=== PATIENT | female | born 1960 | race Caucasian/White ===

== ENCOUNTER → 2022-10-16 | Outpatient (CLI) | payer OTHER ==
[2022-10-16 11:38] LABS: BASOPHILS % (AUTO) 0.6 % (0.0-5.0); HEMATOCRIT 41.2 % (36-48); LYMPHOCYTES % (AUTO) 32.5 % (21.0-51.0); MEAN CORPUSCULAR HEMOGLOBIN 31.5 pg (27.0-33.0); MEAN CORPUSCULAR HGB CONC 32.5 g/dL (32.0-36.0); MEAN CORPUSCULAR VOLUME 96.9 fL (79-99); NEUTROPHILS % (AUTO) 56.6 % (40.0-77.0); PLATELET COUNT (AUTO) 199 K/uL (130-400); RED BLOOD CELL COUNT(AUTO) 4.25 MIL/uL (4.00-5.50); RED CELL DISTRIBUTION WIDTH 13.2 % (11.0-15.5); WHITE BLOOD COUNT (AUTO) 6.6 K/uL (4.8-10.8)
== END | disposition home or self-care (01) ==
LOC: LAB 11:04
PROVIDERS: ATTEND Internal Medicine Cardiovascular Disease
DX: I27.20 Pulmonary hypertension, unspecified (principal)
CPT/HCPCS: 36415; 85025

== ENCOUNTER → 2022-10-18 | Outpatient (CLI) | payer OTHER ==
[~2022-10-18] MED LIST: IOHEXOL-350 50ML VIAL IV ONE
== END | disposition home or self-care (01) ==
LOC: RAH 12:34
PROVIDERS: ATTEND Internal Medicine Cardiovascular Disease
DX: I27.20 Pulmonary hypertension, unspecified (principal); M47.815 Spondylosis without myelopathy or radiculopathy, thoracolumbar region
CPT/HCPCS: 71270; Q9967

== ENCOUNTER → 2022-11-27 | Outpatient (CLI) | payer OTHER ==
[~2022-11-27] MED LIST changes: +ALBUTEROL 0.083% 2.5 MG/3 ML INH IH ONE; -IOHEXOL-350 50ML VIAL IV ONE
== END | disposition home or self-care (01) ==
LOC: EDUNIT# 11-06 10:30 → RESP 09:12
PROVIDERS: ATTEND Internal Medicine Cardiovascular Disease
DX: I27.20 Pulmonary hypertension, unspecified (principal)
CPT/HCPCS: 94060; 94727; 94729

== ENCOUNTER 2024-11-14 01:15 | Observation (INO) | payer MEDICARE ==
[~2024-11-14] VITALS: Ht 167.6 cm; Wt 76.4 kg
[~2024-11-14 01:15] MED LIST changes: -ALBUTEROL 0.083% 2.5 MG/3 ML INH IH ONE; +APIX5TAB PO; +CARB100T12 PO; +GABA-529 PO; +TOPI-97 PO
--- NOTE | 2024-11-14 01:16 | NUR ---
DELAY IN TRIAGE. PT LEFT TO USE RESTROOM ," I CAN'T HOLD IT"
--- NOTE | 2024-11-14 01:27 | ERN ---
ED Note History of Present Illness Stated Complaint: " A-FIBBING" Chief Complaint: Palpitations Time Seen by MD: 01:22 Dictation: This is a 64-year-old female with paroxysmal atrial flutter fibrillation came in as she started experiencing severe palpitations and at home her heart rates went all the way up to 142-148. She has a cardio mobile device and her recording of the cardiac rhythm shows intermittent SVT and AFib. But many times the patient's heart rates are in the 40s and 50s. She has been started on Eliquis recently for AFib No chest pain diaphoresis. No syncopal episode. She had atrial fibrillation ablation 2 weeks ago. She denied drinking any excessive coffee or caffeinated drinks. He did consume some alcohol when she was in [place] recently. Patient admits to nonrest orative sleep both sleep onset insomnia and maintenance insomnia. She also gives a history of snoring at night Patient appears extremely anxious and tearful however the EKG shows a normal sinus rhythm. Cardio mobile definitely has picked up AFib with RVR with rates of 140s Temperature 97.8 pulse 76 respirations 20 blood pressure 158/96 with a pulse oximetry of 99% on room air Chronic medical issues include mild to moderate mitral regurgitation, atrial flutter/fibrillation on Eliquis. Asset Protection Professional--Dr. Muir and Dr. Butt PCP Dr. Stacy Allergies: Coded Allergies: No Known Allergies (Unverified Allergy, Unknown, 10/25/24) Home Meds Active Scripts Apixaban (Eliquis) 5 Mg Tablet, 1 TAB PO BID for 30 Days, #60 TAB 3 Refills Prov:SUN BUTT MD 10/26/24 Reported Medications Carbamazepine (Carbamazepine) 100 Mg Tab.chew, 100 MG PO QID 10/25/24 Gabapentin (Gabapentin) 100 Mg Capsule, 100 MG PO TID 10/25/24 Topiramate (Topiramate) 50 Mg Tablet, 50 MG PO BID 10/25/24 Past Medical History Past Medical History: A-Fib Additional Past Medical Hx: tortuous aorta, mitral valve regurgitation. Surgical History: Appendectomy, Hysterectomy, Other Surgical History Other: LEFT KNEE, Family History: Negative Social History: ETOH (Social) History: Not Applicable RN Note Reviewed/Agreed w/PFSH: Yes Review of System Dictation Constitutional: Negative for fever,chills, and weight loss Eyes: Negative for injury, pain,redness, and discharge ENT: Negative for injury,pain or swelling Cardiovascular: Negative for chest pain, positive for palpitations Respiratory: Negative for shortness of breath, cough, and wheezing, Abdomen/GI: Negative for abdominal pain, nausea, vomiting, diarrhea, and constipation Back: Negative for injury and pain : Negative for injury, bleeding and discharge MS/Extremity: Negative for injury and deformity Skin: Negative for rash, and discoloration Neuro: Negative for headache, weakness, numbness, tingling, and seizure Psych: Negative for suicide ideation, homicidal ideation, and hallucinations Initial Vital Sign VS Vital Signs Date Time Temp Pulse Resp B/P (MAP) Pulse Ox O2 Delivery O2 Flow Rate FiO2 11/14/24 01:16 97.9 76 20 158/96 99 Room Air 11/14/24 01:42 0 21 Physical Exam Dictation General: awake, alert, NAD tearful and emotional Head/Face: Normocephalic, atraumatic Eyes: PERRL, EOMI, vision at baseline ENT: oral cavity clear, TMs clear, no signs of infection Neck: Trachea midline, supple, no nuchal rigidity Cardiovascular: RRR, normal S1/S2, No MRGs, no JVD Respiratory: CTAB, no respiratory distress, No rales or wheezes Abdomen: Soft, non-tender, non-distended, normal bowel sounds, no guarding or rebound. Skin: Warm, dry, normal turgor, no rash MS/Extremity: Pulses equal, no cyanosis, neurovascular intact, FROM Neuro: COAx4, GCS 15, strength 5/5, CN 2-12 intact, normal cerebellar exam, norm al gait, Psych: Normal behavior, mood, and affect normal Extremities-trace edema without any palpable cords, Homans sign is negative Results (Laboratory/Radiology) Laboratory/Radiology Laboratory Tests Test 11/14/24 01:36 11/14/24 01:38 White Blood Count 7.7 K/uL (4.8-10.8) Red Blood Count 3.97 MIL/uL (4.00-5.50) L Hemoglobin 12.8 g/dL (12.0-16.0) Hematocrit 39.4 % (36-48) Mean Corpuscular Volume 99.2 fL (79-99) H Mean Corpuscular Hemoglobin 32.2 pg (27.0-33.0) Mean Corpuscular Hemoglobin Concent 32.5 g/dL (32.0-36.0) Red Cell Distribution Width 13.4 % (11.0-15.5) Platelet Count 205 K/uL (130-400) Mean Platelet Volume 10.5 fL (7.5-10.5) Immature Granulocyte % (Auto) 0.3 % (0-1) Neutrophils (%) (Auto) 57.8 % (40.0-77.0) Lymphocytes (%) (Auto) 30.9 % (21.0-51.0) Monocytes (%) (Auto) 7.5 % (3.0-13.0) Eosinophils (%) (Auto) 2.6 % (0.0-8.0) Basophils (%) (Auto) 0.9 % (0.0-5.0) Neutrophils # (Auto) 4.5 K/uL (1.8-7.7) Lymphocytes # (Auto) 2.4 K/uL (1.0-4.8) Monocytes # (Auto) 0.6 K/uL (0.1-1.0) Eosinophils # (Auto) 0.20 K/uL (0.00-0.70) Basophils # (Auto) 0.07 K/uL (0.00-0.20) Absolute Immature Granulocyte (auto 0.02 K/uL (0-1) Nucleated Red Blood Cells 0.0 % (0.0-0.19) Sodium Level 137 mmol/L (136-145) Potassium Level 3.6 mmol/L (3.5-5.1) Chloride Level 104 mmol/L (101-111) Carbon Dioxide Level 27 mmol/L (21-32) Blood Urea Nitrogen 26 mg/dL (7-18) H Creatinine 0.8 mg/dL (0.5-1.0) Glomerular Filtration Rate Calc 82 mL/min (>90) Random Glucose 101 mg/dL (70-105) Total Calcium 8.6 mg/dL (8.5-10.1) Total Creatine Kinase 118 U/L (21-232) Troponin I High Sensitivity 15 ng/L (4-50) B-Type Natriuretic Peptide 66 pg/mL (0-100) Urine Color Light-Yellow (YELLOW) Urine Appearance CLEAR (CLEAR) Urine pH 6.5 (5.0-8.0) Urine Specific [place] 1.008 (1.001-1.031) Urine Protein NEGATIVE mg/dL (NEGATIVE) Urine Glucose (UA) NEGATIVE mg/dL (NEGATIVE) Urine Ketones NEGATIVE mg/dL (NEGATIVE) Urine Occult Blood NEGATIVE (NEGATIVE) Urine Nitrate NEGATIVE (NEGATIVE) Urine Bilirubin NEGATIVE mg/dL (NEGATIVE) Urine Urobilinogen 0.2 mg/dL (0.2-1.0) Urine Leukocyte Esterase NEGATIVE Larry/uL Labs Reviewed?: Yes ED Course ED Course Orders Procedure Category Date Status Time Vital Signs Per CPOE 11/14/24 Transmitted Routine 01:19 B-Type Natriuretic LAB 11/14/24 Complete Peptide 01:19 Chest 1vw RAD 11/14/24 Resulted 01:19 12 Lead Ekg Tracing- EKG 11/14/24 Logged Technical 01:19 Oxygen By Nc/Pulse Ox CPOE 11/14/24 Transmitted 01:19 Maintain Iv CPOE 11/14/24 Transmitted 01:19 Iv Insertion CPOE 11/14/24 Transmitted 01:19 Cardiac Monitoring CPOE 11/14/24 Transmitted 01:19 Pulse Oximetry With CPOE 11/14/24 Transmitted Vs And Prn 01:19 Cbc With Differential LAB 11/14/24 Complete 01:19 Activity: Br W/Brp CPOE 11/14/24 Transmitted With Assist 01:19 Creatine Kinase, Total LAB 11/14/24 Complete 01:19 Troponin I High LAB 11/14/24 Complete Sensitivity 01:19 Urinalysis Profile LAB 11/14/24 Complete 01:19 Basic Metabolic Panel LAB 11/14/24 Complete 01:19 Vital Signs Date Time Temp Pulse Resp B/P (MAP) Pulse Ox O2 Delivery O2 Flow Rate FiO2 11/14/24 02:31 65 16 142/80 97 Room Air* 0 21 11/14/24 01:42 97.9 80 20 154/83 96 Room Air* 0 21 11/14/24 01:16 97.9 76 20 158/96 99 Room Air We will perform diagnostic labs, advanced imaging and administer medications according to the patient's complaint. Once the results are available, will review and personally interpreted the labs to rule out any acute life-thre atening emergency the trach require immediate intervention and treatment. I will then re-evaluate the patient after treatment and diagnostic exams have return to determine whether the patient requires any further testing, can safely be discharged home or need further admission to hospital for additional treatment and evaluation. Labs reviewed CBC showed a hemoglobin of 12.8 BNP 7 is significant for a BUN and creatinine of 26 and 0.8 total CK 118 chest x-ray is unremarkable for any acute infiltrate. I had a long discussion with the patient and spouse about all the labs and recommended that she should be monitored for recurrent AFib and have Dr. Muir/Jacki decide on addressing the tachybrady syndrome. She is agreeable 2:48 a.m. patient has been accepted by [facility] mid-level provider for [facility] for management of atrial fibrillation with rapid ventricular response which is paroxysmal Medical Decision Making MDM MDM: Differential diagnosis: Paroxysmal atrial fibrillation-likely from multiple foci in the atria, untreated sleep disorder, mild dehydration, hyperthyroidism Rationale: Tests considered and ordered secondary to shared decision making include: labs, ECG and radiology Previous outside records reviewed: Old ER visits. Risk of complication and/or morbidity or mortality of patient management: None Medications-Per medication reconciliation Need for hospitalization: Patient does meet criteria for hospitalization. Need for emergency major/minor surgery: No There are no social concerns with this patient. Prescription drug management Prescriptions will include symptomatic care Patient's prior external medical records from other ER visits were reviewed by me as indicated. Prior testing and results from previous visits were reviewed. Prior tests were taken into account with medical decision making and resource utilization, independent historian/historians were used to obtain complete medical history. I independently interpreted the test that were performed, results were reviewed by me and considered findings on radiology if ordered. Medical management and examination interpretation discussions were had by me with other qualified healthcare professionals as indicated for the patient's care. Problem List Problem List: (1) Atrial flutter with rapid ventricular response (2) Moderate mitral regurgitation (3) Chronic anticoagulation DX & DISP Disposition: Inpatient Decision to Admit Time: 02:33 Departure Impression: Primary Impression: Moderate mitral regurgitation Additional Impression: Chronic anticoagulation Condition: Stable Additional Instructions: Patient was informed of all the diagnostic labs and procedures conducted in the emergency room today and demonstrated understanding of the results. I personally reviewed and interpreted all the diagnostic exams performed in the ER today. The patient will be admitted to the hospital for further treatment and evaluation. Disposition-admit to facility Condition-stable/guarded Course-uncertain at this time Pain status-decreased Assessment-exam unchanged Admission Certification- I certify that the patients status is appropriate and is based on my best clinical judgment and the patient's condition as documented in the medical records Referrals: OSWALDO STACY MD (PCP) MONIQUE SO MD Nov 14, 2024 01:27
[2024-11-14 01:46] LABS: BASOPHILS # (AUTO) 0.07 K/uL (0.00-0.20); BASOPHILS % (AUTO) 0.9 % (0.0-5.0); EOSINOPHILS % (AUTO) 2.6 % (0.0-8.0); HEMATOCRIT 39.4 % (36-48); IMMATURE GRANULOCYTE ABSOLUTE 0.02 K/uL (0-1); LYMPHOCYTES # (AUTO) 2.4 K/uL (1.0-4.8); LYMPHOCYTES % (AUTO) 30.9 % (21.0-51.0); MEAN CORPUSCULAR HEMOGLOBIN 32.2 pg (27.0-33.0); MEAN CORPUSCULAR HGB CONC 32.5 g/dL (32.0-36.0); MEAN CORPUSCULAR VOLUME 99.2 fL (79-99); MONOCYTES # (AUTO) 0.6 K/uL (0.1-1.0); MONOCYTES % (AUTO) 7.5 % (3.0-13.0); NEUTROPHILS # (AUTO) 4.5 K/uL (1.8-7.7); NEUTROPHILS % (AUTO) 57.8 % (40.0-77.0); PLATELET COUNT (AUTO) 205 K/uL (130-400); RED BLOOD CELL COUNT(AUTO) 3.97 MIL/uL (4.00-5.50); RED CELL DISTRIBUTION WIDTH 13.4 % (11.0-15.5); WHITE BLOOD COUNT (AUTO) 7.7 K/uL (4.8-10.8)
[2024-11-14 01:56] LABS: CREATININE 0.8 mg/dL (0.5-1.0); POTASSIUM 3.6 mmol/L (3.5-5.1)
--- NOTE | 2024-11-14 02:00 | HMCIMG ---
CHEST 1VW HISTORY: Chest pain COMPARISON: 10/25/2024 FINDINGS: A frontal projection of the chest was obtained. No acute pulmonary infiltrates is seen. The heart is borderline enlarged. Degenerative changes are seen. Prominent interstitial markings are seen. No evidence of aortic calcification is seen. IMPRESSION: 1. No acute pulmonary infiltrate is seen.
[2024-11-14 02:04] LABS: APPEARANCE,URINE CLEAR (CLEAR); BILIRUBIN,URINE NEGATIVE (NEGATIVE); GLUCOSE, URINE (UA) NEGATIVE (NEGATIVE); KETONES,URINE NEGATIVE (NEGATIVE); LEUKOCYTE ESTERASE ,URINE NEGATIVE Leu/uL (NEGATIVE); NITRATE,URINE NEGATIVE (NEGATIVE); OCCULT BLOOD,URINE NEGATIVE (NEGATIVE); PH,URINE 6.5 (5.0-8.0); PROTEIN,URINE NEGATIVE (NEGATIVE); UROBILINOGEN,URINE 0.2 mg/dL (0.2-1.0)
[2024-11-14 02:08] LABS: ADD UA MICROSCOPIC NO; COLOR,URINE Light-Yellow (YELLOW)
[2024-11-14 02:28] LABS: B-TYPE NATRIURETIC PEPTIDE 66 pg/mL (0-100)
--- NOTE | 2024-11-14 04:22 | HP ---
[facility] HISTORY AND PHYSICAL Date of Service: Nov 14, 2024 Time of Service: 04:00 PCP: Anthony Omer HISTORY OF PRESENT ILLNESS: This is a 64-year-old female with history of neuropathy ,trigeminal neuralgia, mitral valve regurgitation, tortuous aorta, atrial fibrillation with recent cardiac ablation two weeks ago by who presents to the ED for complaints of severe palpitation at home HR 142 -148 bpm.Patient states she has a cardiac mobile device and recording showed intermittent SVT and atrial fibrillation and patient reports her usual HR is in the 40-50-s.Patient reports 2 weeks ago she was here for similar problem and underwent cardiac ablation and patient was started on Eliquis and patient was advised by her perinatal specialist to get a cardio mobile device and if having afib to go to ER. Patient states she has not been able to get a good sleep because she also has peripheral neuropathy mostly on her left lower extremity.Patient admits to occasionally drinks 2 beers /week and denies drinking excessive coffee or caffeinated drinks.Patient also report having snoring issue at night.Upon ER arrival patient is in normal sinus rhythm. Seen and examined patient in the ER awake,alert and coherent,patient appeared so worried and wanting to be able to see her perinatal specialist.Patient denies fever,cough,chest pain and shortness of breath. Latest vital signs temperature 97.9, heart rate 65, blood pressure 142 / 80 and saturation 97% on room air. Labs: CBC unremarkable. BUN 26 troponin 15 BNP 66 the the rest of the chemis tries unremarkable. Urinalysis is negative. Chest x-ray result revealed no acute pulmonary infiltrate is seen. We will admit patient for further medical management. REVIEW OF SYSTEMS CONSTITUTIONAL: Denies fevers, chills, or night sweats. No unintentional weight loss reported. NEUROLOGICAL: Denies headache, amaurosis fugax, motor weakness, sensory deficit, vertigo/spinning sensation, gait abnormalities, or tremors. ENT: No hearing loss, otalgia, otorrhea, rhinitis, rhinorrhea, hoarseness, or sore throat. CARDIOVASCULAR: Palpitation Denies any exertional angina, dyspnea on exertion, orthopnea, paroxysmal nocturnal dyspnea, life-threatening arrhythmias, claudication. PULMONARY: Denies any shortness of breath, cough, phlegm/sputum, hemoptysis, pleuritic chest pain. SLEEP: Denies morning headaches, daytime somnolence or napping. Denies d ifficulty falling asleep, staying asleep, waking from sleep. Denies knowledge of snoring. GASTROINTESTINAL: Denies any type of dysphagia to either liquids or solids. Denies nausea, vomiting, pyrosis, early satiety, abdominal pain, diarrhea, constipation, or changes in stool consistency or caliber. Denies coffee-ground emesis, hematemesis, hematochezia, or melanotic stools. GENITOURINARY: Denies frequency, urgency, nocturia, hematuria or incontinence (Storage/Irritative symptoms.) Low urinary stream, straining to void, urinary intermittency or hesitancy, splitting of the voiding stream, terminal dribbling. ENDOCRINOLOGIC: Denies polyuria, polydipsia, polyphagia or heat/cold intolerances. HEMATOLOGIC: Denies thrombophilia/previous clots, or coagulopathy/bleeding disorders. ONCOLOGIC: Denies personal history of malignancy. DERMATOLOGIC: Denies rashes or pruritus. PSYCHIATRIC: Denies any suicidal or homicidal ideation. Denies hallucinations. PAST MEDICAL HISTORY: [ neuropathy ,trigeminal neuralgia, mitral valve regurgitation, tortuous aorta, atrial fibrillation on Eliquis] PAST SURGICAL HISTORY: [ Left knee surgery two years ago, hysterectomy the age of 37 years, appendectomy at the age of 11 tonsillectomy at the age of [age] and left wrist fracture with surgery [id number] ] PAST SOCIAL HISTORY: [ Patient lives with . Patient admits to occasional alcohol drinking de nies recreational drug and cigarette smoking ] FAMILY HISTORY: [ Cancer and Alzheimer's disease ] Coded Allergies: No Known Allergies (Unverified Allergy, Unknown, 10/25/24) PHYSICAL EXAM GENERAL APPEARANCE: The patient is awake, alert, and oriented, in no acute cardiopulmonary distress. NEUROLOGICAL: Cranial nerves II-XII grossly intact. Motor is 5/5 in bilateral upper and lower extremities proximal to distal. No sensory deficits. HEENT: Face is symmetric. Pupils are equal and reactive. Extraocular movements are intact. NECK: Supple. No JVD. No thyromegaly. No submental, submandibular, pre- /postauricular, occipital or supraclavicular lymphadenopathy. CHEST: Normal chest expansion. No Telemetry. LUNGS: Absence of any rales, rhonchi or any wheezing. CARDIOVASCULAR: Regular. S1 and S2 normal. No appreciable rubs, murmurs or gallops. ABDOMEN: Soft, nontender, and nondistended. There is no rebound, voluntary guarding, or rigidity. : Deferred. No [place]. EXTREMITIES: Non-edematous and not cyanotic. No clubbing. Good capillary refill. SKIN: No skin breakdown. Vital Sign (Last 24 Hours) 11/14/24 11/14/24 01:42 02:31 Temp 97.9 Pulse 65 Resp 16 B/P (MAP) 142/80 Pulse Ox 97 O2 Delivery Room Air* O2 Flow Rate 0 FiO2 21 LABS: Laboratory: Test 11/14/24 01:38 11/14/24 01:36 Range/Units Urine Color Light-Yellow YELLOW Urine Appearance CLEAR CLEAR Urine pH 6.5 5.0-8.0 Urine Specific [place] 1.008 1.001-1.031 Urine Protein NEGATIVE NEGATIVE mg/dL Urine Glucose (UA) NEGATIVE NEGATIVE mg/dL Urine Ketones NEGATIVE NEGATIVE mg/dL Urine Occult Blood NEGATIVE NEGATIVE Urine Nitrate NEGATIVE NEGATIVE Urine Bilirubin NEGATIVE NEGATIVE mg/dL Urine Urobilinogen 0.2 0.2-1.0 mg/dL Urine Leukocyte Esterase NEGATIVE NEGATIVE Larry/uL White Blood Count 7.7 4.8-10.8 K/uL Red Blood Count 3.97 L 4.00-5.50 MIL/uL Hemoglobin 12.8 12.0-16.0 g/dL Hematocrit 39.4 36-48 % Mean Corpuscular Volume 99.2 H 79-99 fL Mean Corpuscular Hemoglobin 32.2 27.0-33.0 pg Mean Corpuscular Hemoglobin Concent 32.5 32.0-36.0 g/dL Red Cell Distribution Width 13.4 11.0-15.5 % Platelet Count 205 130-400 K/uL Mean Platelet Volume 10.5 7.5-10.5 fL Immature Granulocyte % (Auto) 0.3 0-1 % Neutrophils (%) (Auto) 57.8 40.0-77.0 % Lymphocytes (%) (Auto) 30.9 21.0-51.0 % Monocytes (%) (Auto) 7.5 3.0-13.0 % Eosinophils (%) (Auto) 2.6 0.0-8.0 % Basophils (%) (Auto) 0.9 0.0-5.0 % Neutrophils # (Auto) 4.5 1.8-7.7 K/uL Lymphocytes # (Auto) 2.4 1.0-4.8 K/uL Monocytes # (Auto) 0.6 0.1-1.0 K/uL Eosinophils # (Auto) 0.20 0.00-0.70 K/uL Basophils # (Auto) 0.07 0.00-0.20 K/uL Absolute Immature Granulocyte (auto 0.02 0-1 K/uL Nucleated Red Blood Cells 0.0 0.0-0.19 % Sodium Level 137 136-145 mmol/L Potassium Level 3.6 3.5-5.1 mmol/L Chloride Level 104 101-111 mmol/L Carbon Dioxide Level 27 21-32 mmol/L Blood Urea Nitrogen 26 H 7-18 mg/dL Creatinine 0.8 0.5-1.0 mg/dL Glomerular Filtration Rate Calc 82 >90 mL/min Random Glucose 101 70-105 mg/dL Total Calcium 8.6 8.5-10.1 mg/dL Total Creatine Kinase 118 21-232 U/L Troponin I High Sensitivity 15 4-50 ng/L B-Type Natriuretic Peptide 66 0-100 pg/mL DIAGNOSTICS / RADIOLOGY: [ ] ASSESSMENT: Paroxysmal AFib RVR on Eliquis POA Recent cardiac ablation POA Moderate mitral regurgitation POA PLAN: We will admit patient in medical telemetry We will start on heart healthy diet We will start on Famotidine 20 mg p.o. bid for GI prophylaxis We will replace electrolytes as needed per protocol We will continue Eliquis 5 mg p.o. b.i.d. home dose We will add prn medication for fever,pain,cough and nausea We will reconcile home meds once medlist available May benefit for sleep study We will request labs in am Further orders to follow depending on above results Case discussed with attending physician and came up with above treatment and plan of care. ADVANCED CARE PLANNING 1. Which of the following were discussed? Hospice Care - No Therapeutic options - Yes Advance Directives - No Other discussions - 2. Discussed with who? Patient 3. Voluntary nature of this service was explained to the patient? Yes 4. Amount of time spent - __20 5. Reviewed by Physician? (if this service was performed by NPP) Yes ADDENDUM: ATTENDING PHYSICIAN ATTESTATION: [facility] I have independently seen, reviewed the chart and made my own assessment of the patient. See my addendum for updates to the hospital for [facility]'s medical plan MD ROD Cordero [facility] Nov 14, 2024 04:22 KAYLIE NAVARRO MD Nov 14, 2024 15:10
[2024-11-14] MEDS ORDERED: NITROGLYCERIN 0.4 MG SL TAB SL PRN (04:30)
[2024-11-14] MEDS ORDERED: PoTASSium chloRIDE 20MEQ/100ML 100 ML IV PRN (04:30)
[2024-11-14] MEDS ORDERED: acetaMINOPHEN 325 MG TAB PO PRN ×2 (04:30)
[2024-11-14] MEDS ORDERED: MAGNESIUM 2GM PREMIX 50ML 50 ML IV PRN (04:30)
[2024-11-14] MEDS ORDERED: PoTASSium chloRIDE 20MEQ ER 20 MEQ ERTAB PO PRN (04:30)
[2024-11-14] MEDS ORDERED: ondanSETRON 4MG INJ IV PRN (04:30)
[2024-11-14] MEDS ORDERED: PoTASSium chl 10% ELIXIR 20MEQ 20 MEQ/15 ML UDCUP PO PRN (04:30)
[2024-11-14 08:21] LABS: BASOPHILS # (AUTO) 0.05 K/uL (0.00-0.20); BASOPHILS % (AUTO) 0.9 % (0.0-5.0); EOSINOPHILS # (AUTO) 0.19 K/uL (0.00-0.70); EOSINOPHILS % (AUTO) 3.3 % (0.0-8.0); HEMATOCRIT 39.8 % (36-48); IMMATURE GRANULOCYTE ABSOLUTE 0.02 K/uL (0-1); LYMPHOCYTES # (AUTO) 1.7 K/uL (1.0-4.8); LYMPHOCYTES % (AUTO) 29.4 % (21.0-51.0); MEAN CORPUSCULAR HEMOGLOBIN 32.3 pg (27.0-33.0); MEAN CORPUSCULAR HGB CONC 32.9 g/dL (32.0-36.0); MEAN CORPUSCULAR VOLUME 98.3 fL (79-99); MONOCYTES # (AUTO) 0.5 K/uL (0.1-1.0); MONOCYTES % (AUTO) 7.9 % (3.0-13.0); NEUTROPHILS # (AUTO) 3.3 K/uL (1.8-7.7); NEUTROPHILS % (AUTO) 58.1 % (40.0-77.0); PLATELET COUNT (AUTO) 203 K/uL (130-400); RED BLOOD CELL COUNT(AUTO) 4.05 MIL/uL (4.00-5.50); RED CELL DISTRIBUTION WIDTH 13.5 % (11.0-15.5); WHITE BLOOD COUNT (AUTO) 5.7 K/uL (4.8-10.8)
[2024-11-14 09:03] LABS: ALBUMIN 3.3 g/dL (3.5-5.0); BILIRUBIN,TOTAL 0.3 mg/dL (0.2-1.0); CREATININE 0.7 mg/dL (0.5-1.0); MAGNESIUM 2.1 mg/dL (1.80-2.40); POTASSIUM 3.7 mmol/L (3.5-5.1); TOTAL PROTEIN, SERUM 6.2 g/dL (6.0-8.3)
[2024-11-14] MEDS: carBAMazepine 200 MG TABLET PO SCH (09:10)
[2024-11-14] MEDS: GABApentin 100 MG CAPSULE PO SCH (09:11)
[2024-11-14] MEDS: FAMOTIDINE 20MG TAB PO SCH (09:11)
[2024-11-14] MEDS: topIRAMate 25 MG TABLET PO SCH (09:11)
[2024-11-14 09:27] LABS: THYROID STIMULATING HORMONE 3.75 uIU/mL (0.36-3.74)
[2024-11-14] MEDS: APIXaban 5 MG TABLET PO SCH (09:44)
--- NOTE | 2024-11-14 10:36 | CONS ---
[facility] CARDIOLOGY CONSULTATION NOTE Date Patient Seen: Nov 14, 2024 Time of Visit: 10:34 Reason for Consultation: pAF with RVR Primary safety grooving machine operator: Dr Cj Muir Electrophysiology: Dr Jim Echeverria History of Present Illness: Patient is a 64-year-old female who was established at the [facility] with Dr. Muir who was recently diagnosed with atrial flutter (type 1 counter-cl ockwise). She was experiencing palpitations and possible "atrial fibrillation" on her home Kardia device. Transthoracic echocardiogram during recent hospitalization showed hyperdynamic LV systolic function with the EF greater than 70% and mild left atrial enlargement. She recently underwent electrophysiology study with atrial flutter catheter ablation with Dr. Echeverria on 10/27/24 restoring sinus rhythm and was subsequently discharged. She had not yet followed up in our office postprocedure, and presented to [facility] due to an episode of palpitations with elevated heart rates into the 140s which resolved by time of presentation to the emergency department. Troponins are negative x2 assays. TSH is mildly elevated at 3.75. She reports no exacerbating factors to the tachycardia. She checked her rhythm on her home Kardia device which gave an alert for atrial fibrillation. She has been strictly compliant with her Eliquis. PMHX: atrial flutter trigeminal neuralgia tricuspid regurgitation pulmonary hypertension Intermittent bradycardia PSHX: Partial hysterectomy Tonsillectomy Left knee replacement Wrist surgery Appendectomy Left tibial plateau fracture repair Atrial flutter ablation 10/2024 FH: Mother with atrial fibrillation and a CVA SOCIAL: Nonsmoker nondrinker retired Current Meds: Current Medications Medications Dose Ordered [facility]/[place]laise Start Time Stop Time Status Last Admin Acetaminophen 650 mg Q6H PRN 11/14/24 04:30 12/14/24 04:29 Acetaminophen 650 mg Q4H PRN 11/14/24 04:30 12/14/24 04:29 Ondansetron HCl 4 mg Q6H PRN 11/14/24 04:30 12/14/24 04:29 Nitroglycerin 0.4 mg PROTOCOL PRN 11/14/24 04:30 12/14/24 04:29 Famotidine 20 mg BID 11/14/24 09:00 12/14/24 08:59 11/14/24 09:11 Magnesium Sulfate 50 ml @ 0 mls/hr PROTOCOL PRN 11/14/24 04:30 12/14/24 04:29 Potassium Chloride 100 ml @ 100 mls/hr AD PRN 11/14/24 04:30 12/14/24 04:29 Potassium Chloride 20 meq AD PRN 11/14/24 04:30 12/14/24 04:29 Potassium Chloride 20 meq AD PRN 11/14/24 04:30 12/14/24 04:29 Gabapentin 100 mg TID 11/14/24 09:00 12/14/24 08:59 11/14/24 09:11 Carbamazepine 100 mg QID 11/14/24 09:00 12/14/24 08:59 11/14/24 09:10 Topiramate 50 mg BID 11/14/24 09:00 12/14/24 08:59 11/14/24 09:11 Apixaban 5 mg BID 11/14/24 09:45 12/14/24 09:44 11/14/24 09:44 Review of Systems: Reports palpitations, tachycardia. No presyncope or syncope. No chest pain. No bleeding or bruising. No abdominal pain. No fevers. Physical Examination: GENERAL: [No acute distress, well appearing. NECK: [Normal carotid upstrokes without bruits.] LUNGS: [Clear breath sounds bilaterally.No wheezes, or rhonchi.] HEART: [Normal rate and rhythm. Normal S1 and S2 without murmurs, gallop or rub.] VASC: [Peripheral pulses +2 bilaterally.] EXT: [No clubbing, cyanosis or edema.] SKIN: [No rashes or lesions noted.] NEURO: [Awake, alert, and oriented x3. No focal sensory or strength deficits noted.] Vital Signs (last 8hr) Date Time Temp Pulse Resp B/P (MAP) Pulse Ox O2 Delivery O2 Flow Rate FiO2 11/14/24 08:32 98.1 51 16 145/74 98 Room Air* 0 21 11/14/24 06:15 98.1 56 16 142/73 99 Room Air* 0 21 11/14/24 04:41 57 14 136/79 96 Room Air* 0 21 Laboratory: [ ] Hematology Labs: Test 11/14/24 08:09 Range/Units White Blood Count 5.7 # 4.8-10.8 K/uL Red Blood Count 4.05 4.00-5.50 MIL/uL Hemoglobin 13.1 12.0-16.0 g/dL Hematocrit 39.8 36-48 % Mean Corpuscular Volume 98.3 79-99 fL Mean Corpuscular Hemoglobin 32.3 27.0-33.0 pg Mean Corpuscular Hemoglobin Concent 32.9 32.0-36.0 g/dL Red Cell Distribution Width 13.5 11.0-15.5 % Platelet Count 203 130-400 K/uL Mean Platelet Volume 10.7 H 7.5-10.5 fL Immature Granulocyte % (Auto) 0.4 0-1 % Neutrophils (%) (Auto) 58.1 40.0-77.0 % Lymphocytes (%) (Auto) 29.4 21.0-51.0 % Monocytes (%) (Auto) 7.9 3.0-13.0 % Eosinophils (%) (Auto) 3.3 0.0-8.0 % Basophils (%) (Auto) 0.9 0.0-5.0 % Neutrophils # (Auto) 3.3 1.8-7.7 K/uL Lymphocytes # (Auto) 1.7 1.0-4.8 K/uL Monocytes # (Auto) 0.5 0.1-1.0 K/uL Eosinophils # (Auto) 0.19 0.00-0.70 K/uL Basophils # (Auto) 0.05 0.00-0.20 K/uL Absolute Immature Granulocyte (auto 0.02 0-1 K/uL Nucleated Red Blood Cells 0.0 0.0-0.19 % Chemistry Labs: Test 11/14/24 08:09 11/14/24 01:36 Range/Units Sodium Level 140 136-145 mmol/L Potassium Level 3.7 3.5-5.1 mmol/L Chloride Level 108 101-111 mmol/L Carbon Dioxide Level 24 21-32 mmol/L Blood Urea Nitrogen 18 7-18 mg/dL Creatinine 0.7 0.5-1.0 mg/dL Glomerular Filtration Rate Calc 96 >90 mL/min Random Glucose 97 70-105 mg/dL Total Calcium 8.4 L 8.5-10.1 mg/dL Magnesium Level 2.10 1.80-2.40 mg/dL Total Bilirubin 0.3 0.2-1.0 mg/dL Aspartate Amino Transf (AST/SGOT) 16 10-37 U/L Alanine Aminotransferase (ALT/SGPT) 22 12-78 U/L Alkaline Phosphatase 91 50-136 U/L Troponin I High Sensitivity 18 4-50 ng/L Total Protein 6.2 6.0-8.3 g/dL Albumin 3.3 L 3.5-5.0 g/dL Triglycerides Level 45 30-200 mg/dL Cholesterol Level 209 H <200 mg/dL LDL Cholesterol 104 H 0-99 mg/dL HDL Cholesterol 92 H 35-85 mg/dL Thyroid Stimulating Hormone (TSH) 3.75 H 0.36-3.74 uIU/mL Total Creatine Kinase 118 21-232 U/L B-Type Natriuretic Peptide 66 0-100 pg/mL Assessment: Tachycardia pAFL Status post catheter ablation on 10/27/24 Elevated TSH Intermittent bradycardia Dyslipidemia, LDL 104 Plan: Patient presenting with recurrence of tach arrhythmia, with multiple alerts on her home Kardia device suggesting atrial fibrillation. She has known history of atrial flutter status post recent catheter ablation. In the emergency department, her EKG and telemetry shows normal sinus rhythm. She is unable to tolerate AV stan blocking agents due to her resting bradycardia. Patient is to continue the uninterrupted factor Xa inhibitor Eliquis. Will discuss with my electrophysiology colleagues regarding the next steps, however I think it is reasonable to keep the patient overnight on telemetry. If no atrial fibrillation confirmed, we can then arrange for transition to outpatient rn cardiac from our office tomorrow. If atrial fibrillation can be confirmed, she may be a candidate for atrial fibrillation ablation. If unable to confirm, may need to consider electrophysiology study, however will of course defer this to the expertise of our EP colleagues. FALGUNI GLORIA DO Nov 14, 2024 10:36
[2024-11-14 12:02] VITALS: O2SAT 97
--- NOTE | 2024-11-14 12:02 | NUR ---
PATIENT ARRIVED TO THE UNIT FROM ER. NO SIGNS OF DISTRESS NOTED.
[2024-11-14 12:10] VITALS: BP 147/68; PULSE 51; RESP 18; TEMP 99.4
--- NOTE | 2024-11-14 14:00 | NUR ---
PT DID NOT WANT TO TAKE GABAPENTIN AT SCHEDULED TIME. STATED THAT SHE DID NOT WANT TO SLEEP ALL DAY AND THE MEDICATION MAKES HER DROWSY. ASKED TO TAKE DOSE SHE DOES NORMALLY AT HOME. WILL CONSULT WITH DOCTOR.
--- NOTE | 2024-11-14 15:27 | EKG ---
[facility] Test Date: 2024-11-14 Test Time: 01:30:06 Pat Name: RODDY REED Department: [facility] Room: 408 1 Gender: F Manager Film: [id number] : 1960 Requested By: MONIQUE SO Order Number: [id number] Reading MD: Cj Muir Measurements Intervals [place] Rate: 65 P: 36 CO: 188 QRS: 5 QRSD: 79 T: 15 QT: 382 QTc: 397 Interpretive Statements Sinus rhythm Compared to ECG 10/25/2024 14:15:16 Sinus bradycardia no longer present Right-axis deviation no longer present T-wave abnormality no longer present Possible ischemia no longer present Electronically Signed On 11-15-2024 12:42:11 CDT by Cj Muir Please click the below link to view image of tracing.
[2024-11-14 16:00] VITALS: BP 133/68; PULSE 56; RESP 18; TEMP 98.7
--- NOTE | 2024-11-14 16:46 | NUR ---
D/C PLAN CM spoke to patient regarding d/c planning. Patient is readmission from hospital less than 3 weeks ago. Patient denies any changes to home setting. Patient is independent with ADL's and lives with spouse. Denies having any home services or DME. Plan to home. No needs verbalized or identified. CM to f/u. Addendum: 11/14/24 at 1648 by ANAIS FIGUEROA CM Amended: Links added.
[2024-11-14 20:25] VITALS: O2SAT 97
[2024-11-14 20:35] VITALS: BP 141/70; PULSE 56; RESP 18; TEMP 98.5
[2024-11-14 23:56] VITALS: BP 134/76; PULSE 63; RESP 18; TEMP 98.5
[2024-11-15 03:23] VITALS: BP 145/85; PULSE 53; RESP 18; TEMP 97.7
[2024-11-15 07:57] VITALS: BP 146/87; PULSE 54; RESP 17; TEMP 97.8
--- NOTE | 2024-11-15 07:59 | PN ---
[facility] Cardiology Progress Note CARDIOLOGY PROGRESS NOTE October Problems: 1. Palpitations and tachycardia with multiple AFib alert on the patient's Kardia device 2. Paroxysmal atrial flutter status post recent ablation October 27, 2024 3. Chronic anticoagulation with Eliquis 4. Hyperdynamic LV with ejection fraction greater than 70% by recent 2D echo 5. Trigeminal neuralgia Blood pressure is ranging between 130 and 140 systolic. Heart rate has been in the 50s and 60s. The patient is afebrile. White count yesterday 5.7 hemoglobin 13 platelet count [id number]. Potassium yesterday was 3.7 BUN 18 creatinine 0.7. LDL cholesterol 104 TSH level was normal brain natriuretic peptide level normal at 66 and troponins x2 normal. Telemetry since admission has shown sinus rhythm with periods of sinus bradycardia but no atrial arrhythmias. I have reviewed the strips from her Kardia device. She had one episode of irregular heartbeat which may have represented atrial fibrillation but this is not definite. Other episodes labeled as atrial fibrillation or actually sinus or sinus with PVCs. Frederick Santorola is currently out of town. I will discuss management with his nurse practitioner. I suspect she can be discharged home today and scheduled for a two week director cardiac. BRAIN ROSAS MD Nov 15, 2024 07:59
[2024-11-15 09:15] VITALS: O2SAT 99
[2024-11-15 12:00] VITALS: BP 129/68; PULSE 55; RESP 18; TEMP 98.1
--- NOTE | 2024-11-15 12:09 | DS ---
Discharge Summary Hospital Course Summary: 64-year-old female with history of neuropathy ,trigeminal neuralgia, mitral valve regurgitation, tortuous aorta, atrial fibrillation with recent cardiac ablation two weeks ago by who presents to the ED for complaints of severe palpitation at home HR 142 -148 bpm.Patient states she has a cardiac mobile device and recording showed intermittent SVT and atrial fibrillation and patient reports her usual HR is in the 40-50-s.Patient reports 2 weeks ago she was here for similar problem and underwent cardiac ablation and patient was started on Eliquis and patient was advised by her measuring clerk to get a cardio mobile device and if having afib to go to ER. Patient states she has not been able to get a good sleep because she also has peripheral neuropathy mostly on her left lower extremity.Patient admits to occasionally drinks 2 beers /week and denies drinking excessive coffee or caffeinated drinks.Patient also report having snoring issue at night.Upon ER arrival patient is in normal sinus rhythm. Seen and examined patient in the ER awake,alert and coherent,patient appeared so worried and wanting to be able to see her measuring clerk.Patient denies fever,cough,chest pain and shortness of breath. Latest vital signs temperature 97.9, heart rate 65, blood pressure 142 / 80 and saturation 97% on room air. Labs: CBC unremarkable. BUN 26 troponin 15 BNP 66 the the rest of the chemistries unremarkable. Urinalysis is negative. Chest x-ray result revealed no acute pulmonary infiltrate is seen. We will admit patient for further medical management. Patient was evaluated by the measuring clerk, Dr. Hagen this morning and since he is she has in her heart rate is 50s and 60. Her labs are stable. Since admission, telemetry has been showing sinus and. Some bradycardia but no atrial arrhythmia. She has been cleared from Cardiology standpoint and since only one episode of irregular heartbeat which may be represented atrial fibrillation but is not definite per Dr. Hagen. So he recommended patient to get Holter monitor and follow up with Dr. Butt in one week since Dr. Galvez is out of town. All medications has been reconciled and will be continued. Patient will be discharged today. Industrial Sales Representative(s): Dr. Muir, measuring clerk Procedure(s): [address] [place] [id number] IMAGING REPORT Signed PATIENT: RODDY REED MR#: [id number] : 1960 SEX: F AGE: 64 LOCATION: [facility] ORDER 9 STATUS: REG ER REPORT#: [id number] SERVICE 8 REASON: CHEST PAIN ORDERING PHYSICIAN: MONIQUE SO MD PROCEDURE: CXR1VW - CHEST 1VW CHEST 1VW HISTORY: Chest pain COMPARISON: 10/25/2024 FINDINGS: A frontal projection of the chest was obtained. No acute pulmonary infiltrates is seen. The heart is borderline enlarged. Degenerative changes are seen. Prominent interstitial markings are seen. No evidence of aortic calcification is seen. IMPRESSION: 1. No acute pulmonary infiltrate is seen. DICTATED BY: NIKO HDZ MD DATE: 11/14/24155 ELECTRONICALLY SIGNED BY: NIKO HDZ MD DATE: 11/14/24199 Assessment/Plan: Discharge diagnoses 1. Palpitations and tachycardia with multiple AFib alert on the patient's Kardia device 2. Paroxysmal atrial flutter status post recent ablation October 27, 2024 3. Chronic anticoagulation with Eliquis 4. Hyperdynamic LV with ejection fraction greater than 70% by recent 2D echo 5. Trigeminal neuralgia Admitting diagnoses: Paroxysmal AFib RVR on Eliquis POA Recent cardiac ablation POA Moderate mitral regurgitation POA Discharge Instructions: Follow up with PCP in 2-3 days Follow-up with measuring clerk Home Medications: Active Scripts Apixaban (Eliquis) 5 Mg Tablet, 1 TAB PO BID for 30 Days, #60 TAB 3 Refills Prov:SUN BUTT MD 10/26/24 Reported Medications Carbamazepine (Carbamazepine) 100 Mg Tab.chew, 100 MG PO QID 10/25/24 Gabapentin (Gabapentin) 100 Mg Capsule, 100 MG PO TID 10/25/24 Topiramate (Topiramate) 50 Mg Tablet, 50 MG PO BID 10/25/24 Continued Medications: Apixaban (Eliquis) 5 Mg Tablet 1 TAB PO BID for 30 Days, #60 TAB 3 Refills Carbamazepine (Carbamazepine) 100 Mg Tab.chew 100 MG PO QID Gabapentin (Gabapentin) 100 Mg Capsule 100 MG PO TID Topiramate (Topiramate) 50 Mg Tablet 50 MG PO BID Time spent arranging discharge: 31-60 minutes ATTESTATION BY PHYSICIAN I have seen and examined the patient. I reviewed the documentation, medical decision making, and treatment plan as noted by the mid-level provider above. I agree with the findings and plan of care. YUDY MURPHY MD, [facility] Nov 15, 2024 12:09
--- NOTE | 2024-11-15 13:04 | NUR ---
DISCHARGE Patient ready for discharge. Provided with followup info. Planning to go to [facility] for holter immediately after discharge. Patients verbalized understanding and all questions answered. IV and telemetry removed. Patient discharging home with family.
== END 2024-11-15 14:00 | disposition home or self-care (01) ==
LOC: EDH 01:15 → INTOOBSV 04:19 → EDHIP 04:19 → 4BH 12:05
PROVIDERS: ADMIT Internal Medicine Sleep Medicine; ATTEND Internal Medicine Sleep Medicine
DX: R00.2 Palpitations (principal); I48.0 Paroxysmal atrial fibrillation; I48.3 Typical atrial flutter; G50.0 Trigeminal neuralgia; E78.5 Hyperlipidemia, unspecified; I08.1 Rheumatic disorders of both mitral and tricuspid valves; I27.20 Pulmonary hypertension, unspecified; Z79.01 Long term (current) use of anticoagulants; Z90.711 Acquired absence of uterus with remaining cervical stump; Z90.49 Acquired absence of other specified parts of digestive tract; Z98.890 Other specified postprocedural states
CPT/HCPCS: 99285; 84443; 82550; 83735; 84484 ×2; 80061; 80053; 83880; 85025 ×2; 81003; 36415; 71045; 93005; A4600; G0378 ×3; 80048

== ENCOUNTER 2025-07-10 16:31 | Emergency (ER) | payer MEDICARE ==
[~2025-07-10] VITALS: Ht 165.1 cm; Wt 73.9 kg
[2025-07-10 17:24] LABS: APPEARANCE,URINE CLEAR (CLEAR); GLUCOSE, URINE (UA) NEGATIVE (NEGATIVE); LEUKOCYTE ESTERASE ,URINE NEGATIVE Leu/uL (NEGATIVE); NITRATE,URINE NEGATIVE (NEGATIVE); OCCULT BLOOD,URINE NEGATIVE (NEGATIVE)
[2025-07-10] MEDS: 0.9%NACL 1000ML 1,000 ML IV ONE (17:27)
[2025-07-10 17:30] LABS: ADD UA MICROSCOPIC NO
[2025-07-10 17:37] LABS: IMMATURE GRANULOCYTE ABSOLUTE 0.02 K/uL (0-1); NUCLEATED RED BLOOD CELLS 0.0 % (0.0-0.19); PLATELET COUNT (AUTO) 196 K/uL (130-400); RED BLOOD CELL COUNT(AUTO) 4.15 MIL/uL (4.00-5.50); RED CELL DISTRIBUTION WIDTH 13.1 % (11.0-15.5); WHITE BLOOD COUNT (AUTO) 7.8 K/uL (4.8-10.8)
[2025-07-10 17:45] LABS: CREATININE 0.8 mg/dL (0.5-1.0); GLOMERULAR FILTR. RATE CALC 81.0 mL/min (>90); GLUCOSE,RANDOM 118.0 mg/dL (70-105); SODIUM SERUM 141.0 mmol/L (136-145); UREA NITROGEN, BLOOD 22.0 mg/dL (7-18)
--- NOTE | 2025-07-10 18:11 | ERN ---
General Chief Complaint: Palpitations Stated Complaint: PALPITATION Time Seen by MD: 16:35 History of Present Illness Initial Comments 65-year-old female history of atrial fibrillation here for evaluation of palpitations. Patient was concerned as are her smart watch sentinel alarms stating that her heart rate was in the 130s +with the atrial fibrillation. Because of this she decided to come to the emergency room for evaluation. She denies any chest pain at this time. Allergies: Coded Allergies: No Known Allergies (Unverified Allergy, Unknown, 10/25/24) Home Meds Active Scripts Apixaban (Eliquis) 5 Mg Tablet, 1 TAB PO BID for 30 Days, #60 TAB 3 Refills Prov:SUN BUTT MD 10/26/24 Reported Medications Carbamazepine (Carbamazepine) 100 Mg Tab.chew, 100 MG PO QID 10/25/24 Gabapentin (Gabapentin) 100 Mg Capsule, 100 MG PO TID 10/25/24 Topiramate (Topiramate) 50 Mg Tablet, 50 MG PO BID 10/25/24 Past Medical History Past Medical History: A-Fib, High Cholesterol, Heart Disease Medical History Other: tortuous aorta, mitral valve regurgitation. Past Surgical History: Appendectomy, Hysterectomy, Other Surgical History Other: CARDIAC ABLATION, LOOP RECORDEWR, LT KNEE SX Family History Family History: Negative Social History Social History: ETOH Female( History) History: Not Applicable Cardiovascular: (+) palpitations Review of Systems: was completed, & the rest were negative. Physical Exam Physical Exam Dictation GENERAL APPEARANCE NAD, activity normal for age, well developed/ well nourished, no cyanosis, pallor, or diaphoresis. EYES lids/conjunctiva normal. EARS/NOSE/THROAT Mucous membranes moist, nares normal, lips/teeth normal uvula midline without oral pharyngeal erythema, exudate or swelling TMs normal bilaterally. No lymphangitis/lymphedema. HEAD/NECK normocephalic atraumatic, no facial trauma, neck is supple. RESPIRATORY respiratory effort normal, speaks in full sentences, no tripod position, no accessory muscle use. Lungs clear to auscultation without rhonchi, wheezes, rales CARDIAC irregularly regular. Tachycardic ABDOMINAL Soft, ND/NT. No evidence of fluid wave. No pulsatile masses on exam, rebound tenderness, Rankin sign or pain over Mcburney's point. MUSCLES/EXTREMITIES No abnormal range of motion, no swelling. SKIN Warm, pink and dry. No rashes, dermatoses, petechiae or lesions. NEUROLOGICAL Speech is clear and appropriate. Normal level of consciousness. Gait and coordination are normal. 5/5 strength in all extremities. PSYCH Normal mood and affect. Judgement/competence is appropriate Results Laboratory and Microbiology Lab and Micro Result Laboratory Tests Test 07/10/25 16:56 07/10/25 17:24 Urine Color LIGHT-YELLOW (YELLOW) Urine Appearance CLEAR (CLEAR) Urine pH 6.0 (5.0-8.0) Urine Specific [place] 1.008 (1.001-1.031) Urine Protein NEGATIVE mg/dL (NEGATIVE) Urine Glucose (UA) NEGATIVE mg/dL (NEGATIVE) Urine Ketones NEGATIVE mg/dL (NEGATIVE) Urine Occult Blood NEGATIVE (NEGATIVE) Urine Nitrate NEGATIVE (NEGATIVE) Urine Bilirubin NEGATIVE mg/dL (NEGATIVE) Urine Urobilinogen 0.2 mg/dL (0.2-1.0) Urine Leukocyte Esterase NEGATIVE Larry/uL White Blood Count 7.8 K/uL (4.8-10.8) Red Blood Count 4.15 MIL/uL (4.00-5.50) Hemoglobin 13.6 g/dL (12.0-16.0) Hematocrit 40.5 % (36-48) Mean Corpuscular Volume 97.6 fL (79-99) Mean Corpuscular Hemoglobin 32.8 pg (27.0-33.0) Mean Corpuscular Hemoglobin Concent 33.6 g/dL (32.0-36.0) Red Cell Distribution Width 13.1 % (11.0-15.5) Platelet Count 196 K/uL (130-400) Mean Platelet Volume 10.7 fL (7.5-10.5) H Immature Granulocyte % (Auto) 0.3 % (0-1) Neutrophils (%) (Auto) 58.7 % (40.0-77.0) Lymphocytes (%) (Auto) 29.7 % (21.0-51.0) Monocytes (%) (Auto) 8.7 % (3.0-13.0) Eosinophils (%) (Auto) 2.0 % (0.0-8.0) Basophils (%) (Auto) 0.6 % (0.0-5.0) Neutrophils # (Auto) 4.6 K/uL (1.8-7.7) Lymphocytes # (Auto) 2.3 K/uL (1.0-4.8) Monocytes # (Auto) 0.7 K/uL (0.1-1.0) Eosinophils # (Auto) 0.16 K/uL (0.00-0.70) Basophils # (Auto) 0.05 K/uL (0.00-0.20) Absolute Immature Granulocyte (auto 0.02 K/uL (0-1) Nucleated Red Blood Cells 0.0 % (0.0-0.19) Sodium Level 141 mmol/L (136-145) Potassium Level 3.8 mmol/L (3.5-5.1) Chloride Level 106 mmol/L (101-111) Carbon Dioxide Level 26 mmol/L (21-32) Blood Urea Nitrogen 22 mg/dL (7-18) H Creatinine 0.8 mg/dL (0.5-1.0) Glomerular Filtration Rate Calc 81 mL/min (>90) Random Glucose 118 mg/dL (70-105) H Total Calcium 8.5 mg/dL (8.5-10.1) Troponin I High Sensitivity 21 ng/L (4-50) MDM 65-year-old female here for evaluation of palpitations. She has atrial fibrillation. She was noted to be AFib with a RVR in the 130s however after 1 L normal saline bolus fluids she improved. She is currently in the 90s. We will discharge her home at this time with close follow up with Cardiology. She was advised to return to the emergency room for heart rate is consistently above 130s. All labs reviewed with the patient. Patient's prior external medical records from other ER visits were reviewed by me as indicated. Prior testing and results from previous visits were reviewed. Prior tests were taken into account with medical decision making and resource utilization, independent historian/historians were used to obtain complete medical history. I independently interpreted the test that were performed, results were reviewed by me and considered findings on radiology if ordered. M edical management and examination interpretation discussions were had by me with other qualified healthcare professionals as indicated for the patient's care. Labs and imaging reviewed with patient. All questions answered at this time. Patient advised to follow up with primary care physician in the next few days. Patient well-appearing, no acute distress. Vital signs stable. Will discharge at this time. ED Course Orders Procedure Category Date Status Time Cbc With Differential LAB 07/10/25 Complete 16:35 Basic Metabolic Panel LAB 07/10/25 Complete 16:35 Urinalysis Profile LAB 07/10/25 Complete 16:35 Troponin I High LAB 07/10/25 Complete Sensitivity 16:35 0.9%Nacl 1000ml (Ns PHA 07/10/25 Complete 1000ml) 17:30 Metoprolol Tartrate PHA 07/10/25 Complete (Lopressor) 17:30 Current Medications Medications (Trade) Dose Ordered Sig/Blaise Route PRN Reason Start Time Stop Time Status Last Admin Dose Admin Metoprolol Tartrate (loprESSOR) 5 mg ONCE ONCE IV 07/10/25 17:30 07/10/25 17:31 DC Sodium Chloride 1,000 ml @ 0 mls/hr Q0M ONCE IV 07/10/25 17:30 07/10/25 17:31 DC 07/10/25 17:27 Vital Signs Date Time Temp Pulse Resp B/P (MAP) Pulse Ox O2 Delivery O2 Flow Rate FiO2 07/10/25 17:30 98.4 107 20 121/91 95 Room Air* 0 21 07/10/25 16:35 98.1 114 146/63 98 Room Air 0 DX & DISP Disposition: Discharge Departure Impression: Primary Impression: Palpitations Additional Impression: Atrial fibrillation Condition: Stable Referrals: OSWALDO STACY MD (PCP) ELVI POLLARD MD Jul 10, 2025 18:11
[2025-07-10 18:41] VITALS: BP 128/69; PULSE 102; RESP 22; TEMP 98.2; O2SAT 98
--- NOTE | 2025-07-10 18:42 | NUR ---
DC PATIENT WAS DC'D BY DR RAZ Miranda DC'D PATIENTS IV WITH CATH STILL INTACT AND APPLIED 2X2 GAUZE WITH COBAN I EXPLAINED TO PATIENT TO FOLLOW UP WITH PCP, PROVIDED INFO BASED ON DIAGNOSIS, PRESCRIPTIONS AND ANSWERED ANY FOLLOW UP QUESTIONS PATIENT AMBULATED OUT OF ED, NO COMPLICATIONS
--- NOTE | 2025-07-12 13:56 | EKG ---
[facility] Test Date: 2025-07-10 Test Time: 16:14:21 Pat Name: RODDY REED Department: ED Room: Gender: F Pain Medicine Physician: [id number] : 1960 Requested By: ELVI POLLARD Order Number: [id number] Reading MD: Parvez Lizarraga Measurements Intervals [place] Rate: 105 P: 0 ND: 0 QRS: 44 QRSD: 75 T: 27 QT: 329 QTc: 435 Interpretive Statements Atrial fibrillation Borderline ST depression, diffuse leads Compared to ECG 11/14/2024 01:30:06 ST (T wave) deviation now present Sinus rhythm no longer present Electronically Signed On 07-12-2025 19:21:25 [employer] by Parvez Lizarraga Please click the below link to view image of tracing.
== END 2025-07-10 18:47 | disposition home or self-care (01) ==
LOC: EDH 16:31
DX: R00.2 Palpitations (principal); I48.91 Unspecified atrial fibrillation; E78.00 Pure hypercholesterolemia, unspecified; Z90.49 Acquired absence of other specified parts of digestive tract; Z90.710 Acquired absence of both cervix and uterus; Z79.899 Other long term (current) drug therapy; Z79.01 Long term (current) use of anticoagulants
CPT/HCPCS: 99284; 96360; 84484; 80048; 85025; 81003; 36415; 93005; J7030